=== PATIENT | female | born 1975 | race Hispanic/Latino ===

== ENCOUNTER 2016-10-12 12:41 | Emergency (ER) | payer MEDICAID ==
[2016-10-12 12:49] VITALS: BP 143/94; PULSE 92; RESP 16; TEMP 97.7; O2SAT 100
[2016-10-12] MEDS ORDERED: Sodium Chloride 0.9% 1,000 ML IV ONE (13:19)
--- NOTE | 2016-10-12 13:41 | C.PDOC ---
History Of Present Illness 41 year old patient presents to the ED complaining of nausea, vomiting and heroin withdrawal. Patient reports she was in detox for 5 days for heroin and recently left from it. At first, she reports her last use was 09/29/16. She was taking Suboxone since she left from detox. Then, she states she injected 3 bags this morning. Patient's boyfriend found her on the floor of the bathroom. Patient denies headache, dizziness, chest pain, or shortness of breath. Time Seen by Provider: 10/12/16 12:51 Chief Complaint (Nursing): Substance Abuse History Per: Patient History/Exam Limitations: other Onset/Duration Of Symptoms: Other Current Symptoms Are (Timing): Still Present Suicide/Self Injury Attempted (Context): None Modifying Factor(s): Other (heroin) Severity: Mild Pain Scale Rating Of: 3 Recent travel outside of the [place]: No Past Medical History Reviewed: Historical Data, Nursing Documentation, Vital Signs Vital Signs: Last Vital Signs Temp 97.7 F 10/12/16 12:46 Pulse 92 H 10/12/16 12:46 Resp 16 10/12/16 12:46 BP 143/94 H 10/12/16 12:46 Pulse Ox 100 10/12/16 15:23 Family History: States: Unknown Family Hx - Social History Hx Alcohol Use: No Hx Substance Use: Yes (Heroin) Review Of Systems Except As Marked, All Systems Reviewed And Found Negative. Cardiovascular: Negative for: Chest Pain Respiratory: Negative for: Shortness of Breath Gastrointestinal: Positive for: Nausea, Vomiting Neurological: Negative for: Headache, Dizziness Psych: Positive for: Withdrawal Physical Exam - Physical Exam Appears: Non-toxic, No Acute Distress, Other (tearful) Skin: Warm, Dry, Pale Head: Atraumatic, Normacephalic Neck: Normal ROM, Supple Chest: Symmetrical Cardiovascular: Rhythm Regular Respiratory: No Accessory Muscle Use Gastrointestinal/Abdominal: Soft, No Tenderness Back: Normal Inspection Extremity: Normal ROM Neurological/Psych: Oriented x3 Gait: Steady ED Course And Treatment O2 Sat by Pulse Oximetry: 100 (room air) Pulse Ox Interpretation: Normal Progress Note: Plan: -IV fluids. -Reassess and disposition. Patient feels better after receiving fluids. She is stable for discharge. Patient is instructed to follow up with [facility] where she did detox. Disposition Counseled Patient/Family Regarding: Diagnosis - Disposition Disposition: HOME/ ROUTINE Disposition Time: 15:21 Condition: STABLE Additional Instructions: Follow up with psychiatry for further management. Instructions: Narcotic Abuse (ED) Forms: General Discharge Instructions - POA Present On Arrival: None - Clinical Impression Clinical Impression: Drug abuse, Acute drug withdrawal syndrome - Scribe Statement The provider has reviewed the documentation as recorded by the Scribe Jodi Marquez Provider Attestation: All medical record entries made by the Scribe were at my direction and personally dictated by me. I have reviewed the chart and agree that the record accurately reflects my personal performance of the history, physical exam, medical decision making, and the department course for this patient. I have also personally directed, reviewed, and agree with the discharge instructions and disposition.
[2016-10-12] MEDS ORDERED: Sodium Chloride 0.9% 1,000 ML ONE (14:04)
== END 2016-10-12 16:29 | disposition home or self-care (01) ==
LOC: C.ER 12:41
DX: F11.23 Opioid dependence with withdrawal (principal)
CPT/HCPCS: 96360; 99285; J7040

== ENCOUNTER 2017-03-14 09:59 | Inpatient (IN) | payer MEDICAID ==
[2017-03-14 10:50] LABS: EOS # 0.2 K/uL (0.0-0.7); EOS % 4.4 % (0.0-4.0); HEMATOCRIT 33.5 % (34.0-47.0); LYMPH # 1.5 K/uL (1.0-4.3); LYMPH % 39.3 % (20.0-40.0); MEAN CELL VOLUME 75.1 fL (81.0-99.0); MEAN CORPUSCULAR HEMOGLOBIN 24.9 pg (27.0-31.0); MEAN CORPUSCULAR HGB CONC 33.1 g/dL (33.0-37.0); MEAN PLATELET VOLUME 8.9 fL (7.2-11.7); MONO # 0.3 K/uL (0.0-0.8); MONO % 7.8 % (0.0-10.0); NRBC % 0.1 % (0.0-2.0); RED CELL DISTRIBUTION WIDTH 16.3 % (11.5-14.5); WHITE BLOOD COUNT 3.9 K/uL (4.8-10.8)
[2017-03-14 10:56] LABS: CHLORIDE 98 mmol/L (98-107); POTASSIUM 3.9 mmol/L (3.6-5.2); SODIUM 136 mmol/L (132-148)
[2017-03-14 10:58] LABS: BILIRUBIN,TOTAL 0.5 mg/dL (0.2-1.3); GFR AFRICAN-AMERICAN > 60
--- NOTE | 2017-03-14 10:58 | C.PDOC ---
History Of Present Illness 41 year old female presents to the ED requesting methadone detox. Patient states she has not taken methadone for the past few days, and denies any symptoms right now. Patient admits to history of heroin abuse. Otherwise, patient denies any active complaints as well as suicidal/homicidal ideation at this time. Time Seen by Provider: 03/14/17 10:10 Chief Complaint (Nursing): Substance Abuse History Per: Patient History/Exam Limitations: no limitations Onset/Duration Of Symptoms: Days Current Symptoms Are (Timing): Still Present Suicide/Self Injury Attempted (Context): None Modifying Factor(s): Other (opiod ) Associated Symptoms: denies: Suicidal Thoughts, Suicidal Plan Involuntary Hold By: None Recent travel outside of the [place]: No Additional History Per: Patient Past Medical History Reviewed: Historical Data, Nursing Documentation, Vital Signs Vital Signs: Last Vital Signs Temp 98.5 F 03/14/17 16:17 Pulse 69 03/14/17 17:17 Resp 18 03/14/17 16:17 BP 125/80 03/14/17 17:17 Pulse Ox 99 03/14/17 16:17 - Medical History PMH: Depression Surgical History: No Surg Hx Family History: States: Unknown Family Hx - Social History Hx Alcohol Use: No Hx Substance Use: Yes - Immunization History Hx Tetanus Toxoid Vaccination: No Hx Influenza Vaccination: No Hx Pneumococcal Vaccination: No Review Of Systems Psych: Positive for: Other (methadone detox ). Negative for: Suicidal ideation Physical Exam - Physical Exam Appears: Non-toxic, No Acute Distress Skin: Normal Color, Warm, Dry Head: Atraumatic, Normacephalic Eye(s): bilateral: PERRL Nose: No Flaring, No Discharge Oral Mucosa: Moist, No Drooling, No Trismus Tongue: Normal Appearing Throat: No Erythema, No Drooling Neck: No Step Off Deformity, Supple Chest: Symmetrical, No Deformity, No Tenderness Cardiovascular: Rhythm Regular, No Murmur, No JVD Respiratory: No Decreased Breath Sounds, No Accessory Muscle Use, No Rales, No Rhonchi, No Wheezing Gastrointestinal/Abdominal: Soft, No Tenderness, No Distention, No Guarding Extremity: Normal ROM, No Pedal Edema, Capillary Refill (less than 2 seconds ) Neurological/Psych: Oriented x3, Normal Speech, Normal Cognition Gait: Steady ED Course And Treatment - Laboratory Results Result Diagrams: 03/14/17 10:42 03/14/17 10:42 Lab Interpretation: No Acute Changes O2 Sat by Pulse Oximetry: 98 (on RA) Pulse Ox Interpretation: Normal Progress Note: Bloodwork and urinalysis ordered and reviewed and appears normal. Mild hypoglycemia, pt was given PO challenge. Pt is medically cleared for psychiatric evaluation. After pt was seen by Crisis and case discussed with on-call psychiatric , admission ercommend with Dx: Acute methadone dependance. Disposition - Disposition Disposition: HOSPITALIZED Disposition Time: 11:10 Condition: STABLE - Clinical Impression Clinical Impression: Drug dependence - PA / [employer]ER REPAIR / Resident Statement MD/DO has reviewed & agrees with the documentation as recorded. - Scribe Statement The provider has reviewed the documentation as recorded by the Scribe (Estrellita Marquez) All medical record entries made by the Scribe were at my direction and personally dictated by me. I have reviewed the chart and agree that the record accurately reflects my personal performance of the history, physical exam, medical decision making, and the department course for this patient. I have also personally directed, reviewed, and agree with the discharge instructions and disposition.
[2017-03-14 10:59] LABS: ALB/GLOB RATIO 1.3 (1.0-2.1); ALKALINE PHOSPHATASE 82 U/L (38-126); ALT/SGPT 66 U/L (9-52); AST/SGOT 51 U/L (14-36); BLOOD UREA NITROGEN 16 mg/dL (7-17); CALCIUM 8.9 mg/dl (8.6-10.4); CARBON DIOXIDE 27 mmol/L (22-30); GLUCOSE,RANDOM 60 mg/dL (65-105); TOTAL PROTEIN 7.5 g/dL (6.3-8.3)
[2017-03-14 11:00] LABS: ALCOHOL SERUM < 10 mg/dl (0-10); RBC URINE < 1 /hpf (0-3); URINE BILIRUBIN NEGATIVE (NEGATIVE); URINE BLOOD NEGATIVE (NEGATIVE); URINE COLOR Yellow (YELLOW); URINE GLUCOSE (UA) NORMAL (Normal); URINE KETONE NEGATIVE (NEGATIVE); URINE LEUKOCYTE ESTERASE NEG Leu/uL (Negative); URINE PROTEIN NEGATIVE (NEGATIVE); URINE UROBILINOGEN NORMAL mg/dL (0.2-1.0); WBC URINE < 1 /hpf (0-5)
--- NOTE | 2017-03-14 14:35 | PCM.BM ---
<Sheridan Austin - Last Filed: 03/14/17 14:32> Treatment Plan Problems - Problems identified on initial assessmt opiate withdrawal Date Initiated: 03/14/17 Assessment reference: NA Status: Active Treatment assets and liabiliti Patient Assests: adapts well, cooperative, educated, motivated, ADL independent Patient Liabilities: substance abuse - Milieu Protocol Maintain good personal hygiene: daily Encourage regular showers, daily Remind patient to perform daily oral care, daily Assist patient to perform ADL's Conduct patient checks and document Observation sheet: Q15 minutes Maintain personal safety: every shift Educate patient to report safety concerns to staff, every shift Monitor environment for contraband/sharps Medication safety: Monitor for expected outcome, potential side effects: every shift, Assess barriers to learning: every shift, Assess readiness for medication education: every shift <Lona Browne - Last Filed: 03/15/17 15:39> Family Contact Family involvement: Famliy/SO not involved Family contact: Patient declines to allow family contact at present - Goals for Treatment Patient goals for treatment: Complete detox and transition to [facility] for Suboxone maintenence. Discharge/Continuing Care - Education Needs Education Needs: Patient Medication, Patient Diagnosis/Disease Process, Patient Coping Skills, Patient Anger Management skills, Patient Placement options, Patient Community resources - Discharge Discharge Criteria: No longer exhibiting s/s of withdrawal, Reduction of target symptoms Discharge to:: Home - Treatment Team Participation Patient/Family/SO Statement: 03/15/17 15:39 "I wanna go back to [facility] for Suboxone maintenance...I have a therapist there that I see weekly." Discussed with Family/SO: No Was Patient/Family/SO present at Treatment Team Meeting: Yes
--- NOTE | 2017-03-15 14:37 | PCM.PSYCH ---
Initial Psychiatric Evaluation - Initial Psychiatric Evaluation Type of Admission: Voluntary Legal Status: Capacity Chief Complaint (in patient's own words): "I want to switch from methadone to suboxone" Patient's Reaction to Hospitalization: Cooperative History of Present Illness and Precipitating Events: Pt is seen, chart reviewed, case discussed with staff. Pt is a 41 year old white female who is unmarried, has no children and lives with her long-term boyfriend. 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 She presents to detox with desire to transition from methadone to suboxone. She follows up with Dr. Saunders at [facility] and reports that he told her to detox from methadone before he will start her on suboxone. She reports a history of taking painkillers such as Percocet and OxyContin and in 2013 she began using heroin. She went to detox at [facility] and was discharged on Vivitrol but only took it for 15 days before admitting to the hospital for withdrawal. In mid- December of 2016 she started on methadone 40 mg. For the past week she has taken 30 mg methadone daily with her last dose being on Saturday03/13/17. She denies the use of alcohol, cigarettes and other drugs. She has a past medical history of depression for which she takes sertraline 100 mg. She has never had a psych hospitalization. She denies a family psychiatric history other than an uncle with alcohol use disorder. Support and psychoeducation given, AR and CBT used briefly. After care discussed. She is prepared for discharge on Saturday03/18/17 and plans to continue follow up at [facility] for suboxone maintenance. Current Medications: Active Medications Generic Name Dose Route Start Last Admin Trade Name Freq PRN Reason Stop Dose Admin Clonidine HCl 0.1 mg 03/14/17 15:43 Catapres PO Q8 PRN COWS Score More or Equal to 5 Dicyclomine HCl 10 mg 03/14/17 16:00 Bentyl PO Q6 PRN ABDOMINAL SPASM Gabapentin 100 mg 03/14/17 18:00 03/15/17 14:08 Neurontin PO 100 mg TID PRAKASH Administration Hydroxyzine HCl 25 mg 03/14/17 15:46 03/15/17 09:13 Atarax PO 25 mg Q6 PRN Administration Anxiety Loperamide HCl 2 mg 03/14/17 15:40 Imodium PO Q8 PRN Diarrhea Methadone HCl 20 mg 03/15/17 19:00 Methadone PO 03/15/17 19:01 ONCE ONE Methadone HCl 15 mg 03/16/17 10:00 Methadone PO 03/20/17 09:59 Q24H PRAKASH Taper Ondansetron HCl 4 mg 03/14/17 15:40 Zofran Tab PO Q8 PRN Nausea/Vomiting Sertraline HCl 100 mg 03/14/17 15:45 03/15/17 09:13 Zoloft PO 100 mg DAILY PRAKASH Administration Trazodone HCl 50 mg 03/14/17 22:00 03/14/17 21:16 Desyrel PO 50 mg HS PRAKASH Administration Past Psychiatric History - Past Psychiatric History Pertinent Medical Hx (Current Medical&Sleep Prob, Allergies): Allergies Allergy/AdvReac Type Severity Reaction Status Date / Time No Known Allergies Allergy Verified 03/14/17 10:01 Methadone [Methadone HCl] 30 mg PO DAILY 03/14/17 Sertraline [Zoloft] 100 mg PO DAILY 03/14/17 Review of Systems - Neurological Neurological: UNREMARKABLE - Psychiatric Psychiatric: absent: Anxiety, Depression, Hallucinations, Irritability, Suicidal Ideation Mental Status Examination - Personal Presentation Personal Presentation: Looks stated age - Affect Affect: Constricted - Motor Activity Motor Activity: Calm - Reliability in Providing Information Reliability in Providing Information: Good - Speech Speech: Organized, Relevant, Coherent - Mood Mood: Neutral - Formal Thought Process Formal Thought Process: No Impairment - Obsessions/Compulsions Obsessions: None Compulsions: None - Cognitive Functions Orientation: Person, Place, Situation, Time Sensorium: Alert Attention/Concentration: Attentive Estimate of Intelligence: Average Judgement: Intact, as evidence by: Good judgement, Intact, as evidence by: Insight regarding need for hospitalization Memory: Recent intact, as evidence by: Ability to recall events of the day, Remote intact, as evidenced by: Abilit to recall sig. life events - Risk Risk: Withdrawal - Strength & Assets Inventory Strength & Assets Inventory: Family support, Employment status, Life experience , Cooperative DSM 5 DX - DSM 5 DSM 5 Diagnosis: Opioid use disorder Opioid withdrawal - Recommended/Plan of Treatment Treatment Recommendations and Plan of Treatment: Methadone taper for withdrawal Zoloft 100 mg PO daily PRAKASH for depression Neurontin for augmentation As needed medications Supportive therapy and psychoeducation Attend groups and activities Attend self-help groups as well AR for abstinence CBT for relapse prevention After care planning 32 min Projected ELOS: 3-4 days Prognosis: Good with treatment
--- NOTE | 2017-03-16 11:35 | PCM.PYCHPN ---
Psychiatric Progress Note - Psychiatric Progress Note Patient seen today, length of contact: 15 min Patient Chief Complaint: "Much better" Problems Identified/Issues Discussed: The pt is seen, chart reviewed, case discussed with staff. The pt is compliant with medications and reports no side-effects. Symptoms are improving but needs more time to stabilize. After care discussed, support and psychoeducation given. Medication Change: Yes (detox changes daily) Medical Record Reviewed: Yes Mental Status Examination - Cognitive Function Orientation: Person, Place, Situation, Time Memory: Intact Attention: WNL Concentration: WNL Association: WNL Fund of Knowledge: WNL - Mood Mood: Neutral - Affect Affect: Constricted - Speech Speech: Appropriate - Formal Thought Process Formal Thought Process: No Impairment - Suicidal Ideation Suicidal Ideation: No - Homicidal Ideation Homicidal Ideation: No Goal/Treatment Plan - Goal/Treatment Plan Need for Continued Stay: Discharge may exacerbated symptoms, Severe functional impairment Progress Toward Problem(s) and Goals/Treatment Plan: Methadone taper for withdrawal Zoloft 100 mg PO daily PRAKASH for depression Neurontin for augmentation As needed medications Supportive therapy and psychoeducation Attend groups and activities Attend self-help groups as well GA for abstinence CBT for relapse prevention After care planning - CRC Estimated Date of D/C: 03/19/17
--- NOTE | 2017-03-17 12:47 | PCM.PYCHPN ---
Psychiatric Progress Note - Psychiatric Progress Note Patient seen today, length of contact: 15 min Patient Chief Complaint: "Still OK, but couldn't sleep well" Problems Identified/Issues Discussed: The pt is seen, chart reviewed, case discussed with staff. Support given, CBT and MA used briefly No new symptoms reported, improving slowly and needs more time No SEs from medications, risks discussed. After care discussed - CRC Medication Change: Yes (detox changes daily) Medical Record Reviewed: Yes Mental Status Examination - Cognitive Function Orientation: Person, Place, Situation, Time Memory: Intact Attention: WNL Concentration: WNL Association: WNL Fund of Knowledge: WNL - Mood Mood: Neutral - Affect Affect: Constricted - Speech Speech: Appropriate - Formal Thought Process Formal Thought Process: No Impairment - Suicidal Ideation Suicidal Ideation: No - Homicidal Ideation Homicidal Ideation: No Goal/Treatment Plan - Goal/Treatment Plan Need for Continued Stay: Discharge may exacerbated symptoms, Severe functional impairment Progress Toward Problem(s) and Goals/Treatment Plan: Methadone taper for withdrawal Zoloft 100 mg PO daily PRAKASH for depression Neurontin for augmentation As needed medications Supportive therapy and psychoeducation Attend groups and activities Attend self-help groups as well MA for abstinence CBT for relapse prevention After care planning - CRC Estimated Date of D/C: 03/19/17
--- NOTE | 2017-03-18 13:30 | PCM.PYCHPN ---
Psychiatric Progress Note - Psychiatric Progress Note Patient seen today, length of contact: 17 mins Patient Chief Complaint: "Good since I was able to sleep last night" Problems Identified/Issues Discussed: The pt is seen, chart reviewed, case discussed with staff. Pt reports she slept well after taking the Trazadone last night and is glad she was able to get some rest. Pt reports that her detox is currently going well and has no other complaints at the time. Support given, CBT and WA used briefly No new symptoms reported, improving slowly and needs more time No SEs from medications, risks discussed. After care discussed. Pt wanted to know when Dr. Saunders could see her because she is worried that if she leaves detox and is not able to see the doctor and receive a prescription she could not hold off for too long. Dr. Saunders was contacted and agreed to see her tomorrow at [facility] across the [facility] in the afternoon after her discharge. Pt was happy to hear these news. Pt stated that to prevent relapse she would stay home, keep herself busy and have friends and family with her. Medication Change: Yes (detox changes daily) Medical Record Reviewed: Yes Mental Status Examination - Cognitive Function Orientation: Person, Place, Situation, Time Memory: Intact Attention: WNL Concentration: WNL Association: WN Fund of Knowledge: WNL - Mood Mood: Neutral - Affect Affect: Constricted - Speech Speech: Appropriate - Formal Thought Process Formal Thought Process: No Impairment - Suicidal Ideation Suicidal Ideation: No - Homicidal Ideation Homicidal Ideation: No Goal/Treatment Plan - Goal/Treatment Plan Need for Continued Stay: Discharge may exacerbated symptoms Progress Toward Problem(s) and Goals/Treatment Plan: Methadone taper for withdrawal Continue as needed medications Gabapentin for augmentation Attend groups and activities Supportive therapy and psychoeducation WA for abstinence CBT for relapse prevention Encourage MAT Refer to rehab or IOP Attend self-help groups as well 17 mins Estimated Date of D/C: 03/19/17
[2017-03-18 16:47] VITALS: RESP 18
--- NOTE | 2017-03-19 08:58 | PCM.PYCHDC ---
Mental Status Examination - Mental Status Examination Orientation: Person, Place, Situation, Time Memory: Intact Mood: Neutral Affect: Broad Speech: Appropriate Attention: WNL Concentration: WNL Association: WNL Fund of Knowledge: WNL Formal Thought Process: No Impairment Suicidal Ideation: No Current Homicidal Ideation?: No Discharge Summary - Discharge Note Reason for Hospitalization: Methadone detox in order to switch to Suboxone Consultations:: List each consultation separately and include: 1. Reason for request. 2. Findings. 3. Follow-up Summary of Hospital Course include:: 1. Description of specific treatment plan utilized for patients during their course of treatmen. 2. Summarize the time- course for resolution of acute symptoms and/or regressed behaviors. 3. Describe issues identified and worked on during hospitalization. 4. Describe medication utilized. 5. Describe medical problems identified and treated. 6. Reassessment of suicide risk Summary of Hospital Course: The pt was admitted and started on treatment with psychotherapy, support, psychoeducation and medications. Pt reports she is feeling a little uneasy and uncomfortable mainly because she doesn't want to experience any withdrawal symptoms upon discharge and while she waits to begin her Suboxone treatment on Saturday. Pt is ensured that the medicine will carry her over for a few days and is encouraged to take her last dose before discharge. NC and CBT used. The pt attended groups and activities, as well as milieu therapy. All the risks and benefits of medications are discussed and the patient understood and agreed. The pt improved with the treatments provided. After care discussed with the patient. Pt will be picked up by her boyfriend and will see Dr. Saunders later in the evening to receive her Suboxone prescription. Pt states she will continue to attend the [facility] and see her counselor Faiza as well as continue her daily AA and NA meetings. Pt is encouraged to do so. - Final Diagnosis (DSM 5) Condition upon Discharge: STABLE DSM 5: Opioid use disorder Opioid withdrawal Major depression Disposition: HOME/ ROUTINE Follow-up Treatment Plan: Continue below medications after discharge. Follow after care plan as discussed. Use relapse prevention skills Return to ER or call 911 if suicidal, homicidal or symptoms relapse. Stay away from stress, alcohol and drugs. See primary doctor regularly and get labs. Prescriptions/Medication Reconciliation: cloNIDine [Catapres] 0.1 mg PO Q8 PRN #30 tab PRN Reason: COWS Score More or Equal to 5 Gabapentin [Neurontin] 100 mg PO TID #90 cap hydrOXYzine HCl [Atarax] 25 mg PO Q6 PRN #60 tab PRN Reason: Anxiety Ondansetron [Zofran Tab] 4 mg PO Q8 PRN #10 tab PRN Reason: Nausea/Vomiting Sertraline [Zoloft] 100 mg PO DAILY #30 tab traZODone [Desyrel] 100 mg PO HS #30 tab - Antipsychotic Medications Pt discharged on 2 or more routine antipsychotic medications: No
[2017-03-19 09:44] VITALS: BP 119/78; PULSE 81; TEMP 98.5; O2SAT 99
== END 2017-03-19 12:00 | disposition home or self-care (01) | DRG 745 ==
LOC: C.ER 09:59 → C.7D 12:13
PROC: HZ2ZZZZ Detoxification Services for Substance Abuse Treatment (ICD-10-PCS; principal; 2017-03-15)
PROC: HZ52ZZZ Individual Psychotherapy for Substance Abuse Treatment, Cognitive-Behavioral (ICD-10-PCS; 2017-03-15)
PROC: HZ42ZZZ Group Counseling for Substance Abuse Treatment, Cognitive-Behavioral (ICD-10-PCS; 2017-03-15)
PROC: HZ59ZZZ Individual Psychotherapy for Substance Abuse Treatment, Supportive (ICD-10-PCS; 2017-03-15)
PROC: HZ56ZZZ Individual Psychotherapy for Substance Abuse Treatment, Psychoeducation (ICD-10-PCS; 2017-03-15)
PROC: HZ46ZZZ Group Counseling for Substance Abuse Treatment, Psychoeducation (ICD-10-PCS; 2017-03-15)
DX: F11.23 Opioid dependence with withdrawal (principal); F32.9 Major depressive disorder, single episode, unspecified